=== PATIENT | male | born 1970 | race Asian ===

== ENCOUNTER 2019-03-23 08:46 | Outpatient (CLI) | payer BC ==
--- NOTE | 2019-03-23 09:32 | RAD ---
X-ray RIBS right, greater than equal to 2 view with frontal view chest CLINICAL HISTORY: Right rib pain FINDINGS: No consolidation, effusion, or pneumothorax. Cardiomediastinal silhouette is normal in size. No displaced right rib fracture is seen. IMPRESSION: No acute process identified.
== END 2019-03-23 08:47 | disposition home or self-care (01) ==
LOC: SCSRAD 08:46
PROVIDERS: ATTEND Family Medicine
DX: S29.9XXA Unspecified injury of thorax, initial encounter (principal)